=== PATIENT | female | born 1985 | race Caucasian/White ===

== ENCOUNTER 2017-03-15 12:09 | Emergency (ER) | payer OTHER ==
[~2017-03-15 12:09] MED LIST: AUGMENTIN875 MG PO; COLACE100 MG PO; IBUPROFEN800 MG PO; PERCOCET 5-3251 EACH PO
== END 2017-03-15 13:06 | disposition home or self-care (01) ==
LOC: FER 12:09
DX: M77.52 Other enthesopathy of left foot and ankle (principal); M77.51 Other enthesopathy of right foot and ankle; Z88.8 Allergy status to other drugs, medicaments and biological substances
CPT/HCPCS: 99283

== ENCOUNTER 2021-03-18 23:44 | Emergency (ER) | payer OTHER ==
[~2021-03-18 23:44] MED LIST changes: +AMOXICILLIN500 MG PO; +AUGMENTIN 875-1 EACH PO; +MACROBID100 MG PO; +NEURONTIN400 MG PO; +PYRIDIUM100 MG PO; +ULTRAM50 MG PO
[2021-03-19 00:23] LABS: BASOPHIL 0.9 % (0-2); EOSINOPHIL 3.1 % (0-5); HCT 38.7 % (37.0-47.0); HGB 12.4 g/dl (12.5-16.0); LYMPHOCYTE 36.6 % (15-48); MCH 29.3 pg (25.0-31.0); MCV 91.5 fL (78.0-100.0); MONOCYTE 6.6 % (0-12); MPV 11.3 fL (6.0-9.5); NEUTROPHIL 52.6 % (41-80); NRBC 0; PLT 248 K/uL (150-400); RBC 4.23 M/uL (4.20-5.40)
[2021-03-19 00:24] LABS: BILIRUBIN NEGATIVE (NEGATIVE); BLOOD NEGATIVE Ery/uL (NEGATIVE); CLARITY CLEAR (CLEAR); COLOR YELLOW (YELLOW); GLUCOSE (U) NORMAL (NORMAL); LEUKOCYTES NEGATIVE Leu/uL (NEGATIVE); NITRITE NEGATIVE (NEGATIVE); PROTEIN NEGATIVE (NEGATIVE); pH 6.5 (5.0-9.0)
[2021-03-19 00:52] LABS: ALBUMIN 3.7 g/dL (3.4-5.0); BILIRUBIN - TOTAL 0.2 mg/dL (0.2-1.0); CREATININE 0.92 mg/dL (0.51-0.95); GLOBULIN (CALCULATION) 2.9 g/dL; POTASSIUM 3.6 mmol/L (3.5-5.1); TOTAL PROTEIN 6.6 g/dL (6.4-8.2)
[2021-03-19] MEDS ORDERED: CARAFATE1 GM PO (03:30)
[2021-03-19] MEDS ORDERED: ONDANSETRON ODT4 MG PO (03:30)
[2021-03-19] MEDS ORDERED: OMEPRAZOLE40 MG PO (03:30)
== END 2021-03-19 03:42 | disposition home or self-care (01) ==
LOC: FER 23:44
PROVIDERS: Internal Medicine
DX: K21.9 Gastro-esophageal reflux disease without esophagitis (principal); I10 Essential (primary) hypertension; Z88.8 Allergy status to other drugs, medicaments and biological substances
CPT/HCPCS: 36415; 71045; 80053; 81003; 83690; 84484; 85025; 93005; J1885; Q0162

== ENCOUNTER 2021-05-14 18:33 | Emergency (ER) | payer OTHER ==
[~2021-05-14 18:33] MED LIST changes: +CARAFATE1 GM PO; +OMEPRAZOLE40 MG PO; +ONDANSETRON ODT4 MG PO
[2021-05-14] MEDS ORDERED: MEDROL 4MG DOSEP4 MG PO (20:52)
[2021-05-14] MEDS ORDERED: BACLOFEN 10MG T10 MG PO (20:52)
== END 2021-05-14 21:08 | disposition home or self-care (01) ==
LOC: FER 18:33
DX: S33.5XXA Sprain of ligaments of lumbar spine, initial encounter (principal); Z88.8 Allergy status to other drugs, medicaments and biological substances; V49.40XA Driver injured in collision with unspecified motor vehicles in traffic accident, initial encounter; Y92.410 Unspecified street and highway as the place of occurrence of the external cause
CPT/HCPCS: 72125; 72131; 73030; 73060

== ENCOUNTER 2021-05-19 14:27 | Emergency (ER) | payer OTHER ==
[~2021-05-19 14:27] MED LIST changes: +BACLOFEN 10MG T10 MG PO; +MEDROL 4MG DOSEP4 MG PO
[2021-05-19] MEDS ORDERED: MOBIC7.5 MG PO (15:08)
== END 2021-05-19 15:39 | disposition home or self-care (01) ==
LOC: FER 14:27
DX: M54.32 Sciatica, left side (principal); Z98.890 Other specified postprocedural states; Z88.8 Allergy status to other drugs, medicaments and biological substances
CPT/HCPCS: 99283